=== PATIENT | female | born 1995 | race Caucasian/White ===

== ENCOUNTER 2017-03-27 16:48 | Emergency (ER) | payer OTHER ==
[~2017-03-27] VITALS: Ht 160 cm; Wt 52.2 kg
[2017-03-27] MEDS ORDERED: PNEU16DI2 (17:07)
[2017-03-27] MEDS ORDERED: [UNRECOGNIZED DRUG - REMARK] (17:07)
== END 2017-03-27 22:13 | disposition home or self-care (01) ==
LOC: ER 16:48
DX: K52.89 Other specified noninfective gastroenteritis and colitis (principal); A06.89 Other amebic infections; K21.9 Gastro-esophageal reflux disease without esophagitis